=== PATIENT | male | born 1960 | race Caucasian/White ===

== ENCOUNTER 2021-01-17 12:18 | Emergency (ER) | payer BC ==
[2021-01-17] MEDS ORDERED: Sodium Chloride 0.9% 10 ML Syringe FLUSH PRN (12:43)
[2021-01-17] MEDS ORDERED: Sodium Chloride 0.9% 50 ML SDV FLUSH ONE (14:06)
--- NOTE | 2021-01-17 14:16 | EDM.PDOC ---
ED HPI GENERAL MEDICAL PROBLEM - General Chief Complaint: General Stated Complaint: BLEEDING INTERNAL Time Seen by Provider: 01/17/21 13:40 Source of Information: Reports: Patient History Limitations: Reports: No Limitations - History of Present Illness INITIAL COMMENTS - FREE TEXT/NARRATIVE: patient presented to the ER with a c/o BRBPR for 3-4 days. painless. with defecation. fresh blood, no melena. no h/o diverticulitis or hemorrhoids. had a colonoscopy a year ago - shat showed polyps - benign after a biopsy. no change in weight. eating and drinking well. no fever or chills not on blood thinners. - Related Data Allergies Allergy/AdvReac Type Severity Reaction Status Date / Time No Known Allergies Allergy Verified 01/17/21 12:40 Home Meds: Home Meds Folic Acid 0.4 mg PO DAILY 01/17/21 [History] Losartan [Cozaar] 50 mg PO DAILY 01/17/21 [History] Methotrexate 2.5 mg PO Q7D 01/17/21 [History] Omeprazole 40 mg PO DAILY 01/17/21 [History] metFORMIN [Glucophage] 500 mg PO DAILY 01/17/21 [History] Past Medical History - Past Health History Medical/Surgical History: Denies Medical/Surgical History Cardiovascular History: Reports: Hypertension Endocrine/Metabolic History: Reports: Diabetes, Type II Social & Family History - Tobacco Use Tobacco Use Status *Q: Never Tobacco User Second Hand Smoke Exposure: No ED ROS GENERAL - Review of Systems Review Of Systems: See Below Constitutional: Reports: No Symptoms HEENT: Reports: No Symptoms Respiratory: Reports: No Symptoms Cardiovascular: Reports: No Symptoms GI/Abdominal: Reports: Hematochezia : Reports: No Symptoms Musculoskeletal: Reports: No Symptoms Skin: Reports: No Symptoms Neurological: Reports: No Symptoms Psychiatric: Reports: No Symptoms ED EXAM, GENERAL - Physical Exam Exam: See Below Exam Limited By: No Limitations General Appearance: Alert, WD/WN, No Apparent Distress Eye Exam: Bilateral Eye: EOMI, PERRL Head: Atraumatic, Normocephalic Respiratory/Chest: No Respiratory Distress, Lungs Clear Cardiovascular: Normal Peripheral Pulses, Regular Rate, Rhythm, No Edema GI/Abdominal: Normal Bowel Sounds, Soft, Non-Tender, No Distention Rectal (Males) Exam: Normal Exam, Normal Rectal Tone, Other (on blood on DARBY). No: Black Stool, Hemorrhoids, Perirectal Abscess, Tenderness Extremities: Normal Inspection Neurological: Alert, Oriented, No Motor/Sensory Deficits Skin Exam: Warm Course - Vital Signs Last Recorded V/S: Last Vital Signs Temp 97.8 C H 01/17/21 12:30 Pulse 87 01/17/21 12:30 Resp 16 01/17/21 12:30 BP 141/92 H 01/17/21 12:30 Pulse Ox 99 01/17/21 12:30 - Orders/Labs/Meds Orders: Active Orders 24 hr Category Date Time Status Iopamidol [Isovue-300 (61%)] Med 01/17/21 14:15 Active 100 ml IV . DIRECTED Sodium Chloride 0.9% [Saline Flush] Med 01/17/21 12:43 Ordered 10 ml FLUSH ASDIRECTED PRN Saline Lock Insert [OM.PC] Routine Oth 01/17/21 12:43 Ordered Medication Orders Iopamidol (Iopamidol 612 Mg/Ml 100 Ml Bottle) 100 ml IV . DIRECTED [facility] Last Admin: 01/17/21 14:29 Dose: 100 ml Documented by: Sodium Chloride (Sodium Chloride 0.9% 10 Ml Syringe) 10 ml FLUSH ASDIRECTED PRN PRN Reason: Keep Vein Open Labs: Laboratory Tests 01/17/21 01/17/21 01/17/21 Range/Units 13:08 13:08 13:08 WBC 5.9 (4.0-11.0) K/uL RBC 4.33 L (4.50-6.50) M/uL Hgb 12.0 L (13.0-18.0) g/dL Hct 36.8 L (40.0-54.0) % MCV 85 (76-96) fL MCH 27.7 (27.0-32.0) pg MCHC 32.6 (31.0-35.0) g/dL RDW 16.2 H (11.0-16.0) % Plt Count 311 (150-400) K/uL MPV 9.5 (6.0-10.0) fL PT 9.8 (9.0-11.5) sec INR 1.0 (1.0-3.5) Sodium 140 (136-145) mmol/L Potassium 4.3 (3.5-5.1) mmol/L Chloride 105 (98-107) mmol/L Carbon Dioxide 27.1 (21.0-32.0) mmol/L Anion Gap 12.2 (5.0-15.0) mmol/L BUN 19 (8-26) mg/dL Creatinine 0.79 (0.70-1.30) mg/dL Est Cr Clr Drug Dosing TNP Estimated GFR (MDRD) > 60 (>60) MLS/MIN BUN/Creatinine Ratio 24.1 (6-25) Glucose 132 H (74-100) mg/dL Calcium 8.3 L (8.5-10.1) mg/dL Meds: Medications Generic Name Dose Route Start Last Admin Trade Name Freq PRN Reason Stop Dose Admin Iopamidol 100 ml 01/17/21 14:15 01/17/21 14:29 Iopamidol 612 Mg/Ml 100 Ml Bottle IV 100 ml . DIRECTED JOHNSON Administration Sodium Chloride 10 ml 01/17/21 12:43 Sodium Chloride 0.9% 10 Ml Syringe FLUSH ASDIRECTED PRN Keep Vein Open Discontinued Medications Generic Name Dose Route Start Last Admin Trade Name Freq PRN Reason Stop Dose Admin Sodium Chloride 50 ml 01/17/21 14:06 01/17/21 14:28 Sodium Chloride 0.9% 50 Ml Sdv FLUSH 01/17/21 14:07 50 ml ONETIME ONE Administration - Re-Assessments/Exams Free Text/Narrative Re-Assessment/Exam: vitals WNL labs were ordered - including CBC, BMP and INR. hgb level slightly below his baseline - at 12 ( baseline 14 from a year ago at OSH ). DARBY WNL CT abd/pelv with IV - showed e/o diverticulitis in proximal and mid sigmoid colon. no abscess no perforation. no free air. PO abs were prescribed f.u with PCP as outpatient Departure - Departure Time of Disposition: 15:18 Disposition: Home, Self-Care 01 Condition: Good Clinical Impression: Abdominal pain Qualifiers: Abdominal location: lower abdomen, unspecified Qualified Code(s): R10.30 - Lower abdominal pain, unspecified Diverticulitis large intestine Qualifiers: Diverticulitis bleeding: with bleeding Diverticulitis complication: without perforation or abscess Qualified Code(s): K57.33 - Diverticulitis of large intestine without perforation or abscess with bleeding - Discharge Information *PRESCRIPTION DRUG MONITORING PROGRAM REVIEWED*: Not Applicable *COPY OF PRESCRIPTION DRUG MONITORING REPORT IN PATIENT ROSIO: Not Applicable Instructions: Diverticulitis, Diverticulitis, [id number] Referrals: PCP,None [Primary Care Provider] - Forms: ED Department Discharge Sepsis Event Note (ED) - Evaluation Sepsis Screening Result: No Definite Risk - Focused Exam Vital Signs: Vital Signs Temp Pulse Resp BP Pulse Ox 01/17/21 12:30 97.8 C H 87 16 141/92 H 99 - Problem List & Annotations (1) Abdominal pain SNOMED Code(s): 68329701 Code(s): R10.9 - UNSPECIFIED ABDOMINAL PAIN Status: Acute Priority: Low Current Visit: Yes Qualifiers: Abdominal location: lower abdomen, unspecified Qualified Code(s): R10.30 - Lower abdominal pain, unspecified (2) Diverticulitis large intestine SNOMED Code(s): 6934083 Code(s): K57.32 - DVTRCLI OF LG INT W/O PERFORATION OR ABSCESS W/O BLEEDING Status: Acute Priority: Medium Current Visit: Yes Qualifiers: Diverticulitis bleeding: with bleeding Diverticulitis complication: without perforation or abscess Qualified Code(s): K57.33 - Diverticulitis of large intestine without perforation or abscess with bleeding - Problem List Review Problem List Initiated/Reviewed/Updated: Yes - My Orders Last 24 Hours: My Active Orders 01/17/21 12:43 Sodium Chloride 0.9% [Saline Flush] 10 ml FLUSH ASDIRECTED PRN Saline Lock Insert [OM.PC] Routine 01/17/21 14:15 Iopamidol [Isovue-300 (61%)] 100 ml IV . DIRECTED - Assessment/Plan Last 24 Hours: My Active Orders 01/17/21 12:43 Sodium Chloride 0.9% [Saline Flush] 10 ml FLUSH ASDIRECTED PRN Saline Lock Insert [OM.PC] Routine 01/17/21 14:15 Iopamidol [Isovue-300 (61%)] 100 ml IV . DIRECTED Plan: - take antibiotics as prescribed - increase fluids and fibers intake - follow up with your PCP in 1-2 weeks - return to the ER if symptoms got worse or any concerns
[2021-01-17] MEDS: Iopamidol 612 MG/ML 100 ML Bottle IV SCH ×2 (14:28→14:29)
--- NOTE | 2021-01-17 15:00 | CT ---
DATE OF SERVICE: 01/17/21 CLINICAL DATA: RECTAL BLEEDING Enhanced abdomen and pelvic CT: Multi slice acquisition through the abdomen and pelvis with IV, but without oral contrast was performed. No priors. The the lung bases are clear. The heart size is normal. There is a moderate sized hiatal hernia. There is mural thickening within the distal esophagus. Esophagitis should be considered. There is mild diffuse fatty infiltration of the liver. No focal hepatic lesions. Gallbladder appears normal. No biliary duct dilatation. The spleen appears normal. The pancreas appears normal. The right adrenal appears normal. There is a 13 mm low-density lesion in the left adrenal which is most likely benign. Left adrenal otherwise appears normal. The right and left kidneys enhance symmetrically. There are fluid density lesions in both kidneys consistent with bilateral renal cysts. No hydronephrosis or hydroureter. The bladder is partially fluid filled. It appears normal. The prostate is mildly enlarged. No evidence of appendicitis. There is a moderate amount of stool noted within the ascending and transverse colon. There is mild diverticulosis of the descending and sigmoid colon. There is pericolonic fat stranding adjacent to proximal and mid sigmoid colon consistent with diverticulitis. No evidence of diverticular abscess. There is mural thickening within the proximal and mid sigmoid colon with annular constriction of the mid sigmoid colon. This is probably related to chronic diverticular disease. An annular constricting neoplasm cannot be excluded. Colonoscopy after treatment is recommended. No free air. No free fluid. No dilated loops of bowel. No adenopathy. No aortic aneurysm or dissection. There are small bilateral fat containing inguinal hernias. There is degenerative disc disease at multiple levels in the lower thoracic and lumbar spine. Impression: Diverticulosis with findings consistent with diverticulitis of proximal and mid sigmoid colon. No evidence of diverticular abscess. There is mural thickening with apparent annular constriction in the mid sigmoid colon. This is probably related to chronic diverticular disease. Colonoscopy after treatment is recommended to exclude a neoplasm. Multiple other findings as discussed above. MTDD
== END 2021-01-17 15:23 | disposition home or self-care (01) ==
LOC: LB.ED 12:18
DX: K57.33 Diverticulitis of large intestine without perforation or abscess with bleeding (principal); E11.9 Type 2 diabetes mellitus without complications; I10 Essential (primary) hypertension; Z79.84 Long term (current) use of oral hypoglycemic drugs; Z79.899 Other long term (current) drug therapy
CPT/HCPCS: 36415; 74177; 80048; 85027; 85610; 99284-25; Q9967

== ENCOUNTER 2021-08-27 14:32 | Emergency (ER) | payer BC ==
[2021-08-27] MEDS ORDERED: Amoxicillin/Clavulanate K 875-125 MG Tab ONE (15:30)
[2021-08-27] MEDS ORDERED: Acetaminophen/HYDROcodone 325-5 MG Tab ONE (15:30)
== END 2021-08-27 15:42 | disposition home or self-care (01) ==
LOC: LB.ED 14:32
DX: L02.32 Furuncle of buttock (principal); E11.9 Type 2 diabetes mellitus without complications; I10 Essential (primary) hypertension; Z79.899 Other long term (current) drug therapy; Z79.84 Long term (current) use of oral hypoglycemic drugs; Z87.891 Personal history of nicotine dependence
CPT/HCPCS: 99283; A9270-GY

== ENCOUNTER 2022-12-01 19:04 | Emergency (ER) | payer BC ==
[2022-12-01] MEDS ORDERED: Diphtheria,Pertussis(Acell),Tetanus Vaccine 0.5 ML Syringe IM ONE (20:10)
== END 2022-12-01 20:10 | disposition home or self-care (01) ==
LOC: LB.ED 19:04
DX: S91.332A Puncture wound without foreign body, left foot, initial encounter (principal); I10 Essential (primary) hypertension; E11.9 Type 2 diabetes mellitus without complications; K21.9 Gastro-esophageal reflux disease without esophagitis; Z23 Encounter for immunization; Z79.899 Other long term (current) drug therapy; Z87.891 Personal history of nicotine dependence; Z79.84 Long term (current) use of oral hypoglycemic drugs; W22.09XA Striking against other stationary object, initial encounter
CPT/HCPCS: 90471; 90715; 99282; 99283-25

== ENCOUNTER 2024-11-08 18:50 | Emergency (ER) | payer BC | END 2024-11-08 20:11 | disposition home or self-care (01) | LOC: LB.ED 18:50 | DX: E11.65 Type 2 diabetes mellitus with hyperglycemia (principal); I10 Essential (primary) hypertension; K21.9 Gastro-esophageal reflux disease without esophagitis; Z79.84 Long term (current) use of oral hypoglycemic drugs; Z79.899 Other long term (current) drug therapy | CPT/HCPCS: 82947; 99283; 99284 ==

== ENCOUNTER 2024-12-20 10:40 | Emergency (ER) | payer BC ==
[2024-12-20] MEDS: Aspirin 81 MG Tab.Chew PO ONE (10:49)
[2024-12-20 11:08] LABS: BASOPHILS ABSOLUTE AUTO 0.04 K/uL (0.02-0.10); BASOPHILS PERCENT AUTO 0.5 % (0.0-0.5); EOSINOPHILS ABSOLUTE AUTO 0.22 K/uL (0.04-0.40); EOSINOPHILS PERCENT AUTO 2.5 % (1.0-5.0); HEMATOCRIT 43.1 % (40.0-54.0); LYMPHOCYTES PERCENT AUTO 21.6 % (20.0-40.0); MEAN CORPUSCULAR HEMOGLOBIN 28.2 pg (27.0-32.0); MEAN CORPUSCULAR HGB CONC 32.5 g/dL (31.0-35.0); MEAN CORPUSCULAR VOLUME 87 fL (76-96); MEAN PLATELET VOLUME 10.2 fL (6.0-10.0); MONOCYTES ABSOLUTE AUTO 0.75 K/uL (0.20-0.80); MONOCYTES PERCENT AUTO 8.5 % (3.0-10.0); NEUTROPHILS ABSOLUTE AUTO 5.87 K/uL (2.00-7.50); NEUTROPHILS PERCENT AUTO 66.9 % (45.0-70.0); PLATELET COUNT,PLT 234 K/uL (150-400); RED BLOOD CELL COUNT 4.96 M/uL (4.50-6.50); RED CELL DISTRIBUTION WIDTH 16.6 % (11.0-16.0); WHITE BLOOD CELL COUNT,WBC 8.8 K/uL (4.0-11.0)
[2024-12-20 11:27] LABS: BLOOD UREA NITROGEN,BUN 25 mg/dL (8-26); BUN/CREATININE RATIO 22.5 (6-25); CALCIUM 9.1 mg/dL (8.5-10.1); CARBON DIOXIDE,CO2 30.3 mmol/L (21.0-32.0); CHLORIDE,CL 102 mmol/L (98-107); CREATININE 1.11 mg/dL (0.70-1.30); EST CRCL DRUG DOSING (CG) 73.49 mL/min; ESTIMATED GFR 75 mL/min (>60); GLUCOSE RANDOM 190 mg/dL (74-100); POTASSIUM,K 4.3 mmol/L (3.5-5.1); SODIUM,NA 136 mmol/L (136-145)
[2024-12-20 11:28] LABS: TROPONIN I HIGH SENSITIVITY < 4.0 pg/ml (<=60.4)
== END 2024-12-20 11:30 | disposition home or self-care (01) ==
LOC: LB.ED 10:40
DX: M94.0 Chondrocostal junction syndrome [Tietze] (principal); I10 Essential (primary) hypertension; E11.9 Type 2 diabetes mellitus without complications; K21.9 Gastro-esophageal reflux disease without esophagitis; Z87.891 Personal history of nicotine dependence; Z79.84 Long term (current) use of oral hypoglycemic drugs; Z79.899 Other long term (current) drug therapy; Z79.4 Long term (current) use of insulin
CPT/HCPCS: 36415; 80048; 84484; 85025; 93005; 99285; A9270; 93010; 99283